=== PATIENT | male | born 1960 | race Caucasian/White ===

== ENCOUNTER 2022-06-06 13:17 | Inpatient (IN) ==
--- NOTE | 2022-06-06 13:36 | ED Triage Note ---
Date of Service June 06, 2022 History of Present Illness This patient was briefly evaluated while in triage. An abbreviated physical exam was performed. This patient is a 61-year-old Male history metastatic breast cancer who presents to the ED for evaluation of hypocalcemia. Was referred to the ED by hematology oncology for calcium infusion and admission. He denies any chest pain, fever, pain, or any other symptoms. Physical Exam CONSTITUTIONAL: in no acute pain or distress, resting comfortably SKIN: pink, warm, dry CARDIAC: regular rate and rhythm RESPIRATORY: in no respiratory distress, lungs clear to auscultation Initial orders for labs and / or imaging were placed and patient was placed in the waiting area until a bed is available. Please see further documentation for the full ED course.
--- NOTE | 2022-06-06 13:37 | History & Physical Report ---
Date of Service June 06, 2022 Assessment & Plan (1) Hypocalcemia: Plan: Hypocalcemia with appropriate secondary elevation in PTH Patient initially denied Xgeva treatment, confirmed with oncology that did receive a single dose May 09 for hypercalcemia of 10.5. Half-life of approximately 25 days, hypocalcemia multifactorial likely with vitamin D deficiency, Xgeva, +/- metastasis deposition PTH 1019; appropriately increased in the setting of severe hypocalcemia ? Bony deposition at skeletal sites versus with severe vitamin D deficiency No seizure, carpopedal spasm, chvostek sign present. Patient does have prolonged QT 11 g per 1 L NSS infusion pending, 50 cc/h. Calcium checks every 2-4 hours .Adjust rate to maintain low-normal ical. Vitamin D repletion Continue oral calcium repletion with calcium carbonate - Hypophosphatemia 1.1 DO NOT replete IV due to risk of precipitation with IV calcium. Cautious repletion p.o. Creatinine baseline around 1.2, admitting creatinine 1.11. 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 This has been d eferred. May have tumor driven calcium deposition at 20 metastasis site contributing to hypocalcemia Hematology oncology following, no acute change in management at this time DVT prophylaxis: Heparin Diet: Regular Disposition: PCU CODE STATUS: Full code. Would not want ventilation/life-sustaining measures continued for more than a few days. 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 Epidural tumor extension with left-sided neural for aminal narrowing at T11-T12 and mild central canal stenosis at T6 noted he [facility] second cycle of treatment. He has T4 cN1 cM1 disease which had completed 1 round of paclitaxel therapy. Ha is seen on arrival to the ER. He reports that he was due to start chemo today. While presenting for cycle 2-day 1 of therapy treating his noted to be hypocalcemic, without correction following 1 g calcium gluconate bolus. Magnesium is normal, PTH is pending, vitamin D is pending. He has not had any constipation, muscle spasms, cramps, numbness/tingling, or paresthesias. He does not think he has received Xgeva or bisphosphonates, did clarify Xgeva 3 weeks ago x1 dose per Dr. Richards. (May 09, 2022 for hypercalcemia of 10.5). He is not having shortness of breath, difficulty breathing, lightheadedness, dizziness, syncope, presyncope. No chest pain. Reports he has had some liquid diarrhea following chemotherapy, without blood or melena. He has not yet had a PET scan as well as undergoing initial treatment first. He has no current or former history of bleeding problems. He takes oxycodone 5 mg 3 times daily for bone pain, otherwise does not take prescription medications. He denies history of MN, lung disease, DM, thyroid problems, parathyroid problems Baseline EKG 05/04/2022: Normal sinus rhythm, QTc 427. No territorial ST segment changes, T wave changes. No ischemic changes. Medical History: Reviewed. Breast cancer as noted.Compression fracture of lumbar vertebrae. T11-T12 for aminal narrowing at site of epidural tumor extension, T6 central canal stenosis. No history of pulmonary or cardiac disease. Medications: Reviewed. PRev Dexamethasone 20 mg daily, 12 hours hours prior to paclitaxel. Surgical History: Reviewed Family history: Reviewed Allergies: Reviewed Social History: Reviewed Code Status: Full Code Allergies Allergy/AdvReac Type Severity Reaction Status Date / Time No Known Allergies Allergy Verified 06/06/22 15:32 Home Medications Medication Instructions Recorded Confirmed Type oxycodone 5 mg tablet 5 mg PO .Q4-6H PRN Pain 05/08/22 06/06/22 History dexamethasone 4 mg tablet 20 mg PO DIRECTED PRN PRIOR TO 06/06/22 06/06/22 History PACLITAXEL loperamide 2 mg capsule 2 mg PO DIRECTED PRN Diarrhea 06/06/22 06/06/22 History ondansetron 8 mg disintegrating 8 mg translingual Q8H PRN 06/06/22 06/06/22 History tablet NAUSEA/VOMITING prochlorperazine maleate 10 mg 10 mg PO Q6H PRN NAUSEA/VOMITING 06/06/22 06/06/22 History tablet Past Med/Surg History Medical History (Updated 06/06/22 @ 19:31 by Doug Simmons MD) Breast cancer in male RIGHT History of COVID-2020 > NOT HOSPITALIZED Kidney stone PRESENT Lower back pain Surgical History (Updated 05/11/22 @ 09:20 by Deandra Esteban, LESLI) Port-A-Cath in place (05/11/22) Insertion of Access Port -with fluoroscopic assistance Gregory Massey MD, FACS [place] teeth extracted Family History (Updated 05/09/22 @ 15:19 by Bela Garcia RN) Father Cancer Social History (Updated 04/18/22 @ 13:46 by POPEYE Fleming) Smoking Status: Never smoker Second Hand Exposure: No; Hx Alcohol Use: No Hx Substance Use: No Preferred Language: Ivorian Communication Ability: Effective Lime Boiler Required: No Beliefs That Will Affect Care: None marital status: Current Living Situation: Spouse current occupational status: retired Other Information That Helps Us Care for You: No Feels Safe at Home: Yes Safety Concerns: Feels Safe At This Time Assistive Devices: Cane Review of Systems Review of Systems: All systems reviewed & are unremarkable except as noted in HPI & below Physical Exam Physical Exam: General: A&Ox3. NAD. Cooperative. Thin. HEENT: Atraumatic, normocephalic. Vision and hearing grossly intact. Chvostek sign negative. Pulm: CTAB A&P. -wheezes, -rales, -rhonchi. Symmetrical chest rise. No increased work of breathing. No respiratory distress. Thorax: Left-sided port in place, no surrounding warmth/erythema. Cardiac: RRR, -mrg. Radial pulses intact and symmetrical. Abdominal: Nontender, nondistended, soft. BS present. Ext: No carpopedal spasm PG Care Time/CCT Total # of Minutes Spent Total Time Spent with Patient: Total time spent is greater than 50% in coordination of care (as documented) at patient's floor/unit and/or counseling patient: Coding Level of Care Code 89806 INT INP/OBS CARE 3/75MIN Diagnoses Hypocalcemia E83.51 Carcinoma of right male breast C50.921 Spine metastasis C79.51
[2022-06-06] MEDS: CALCIUM GLUCONATE 1,000 MG/60 ML BAG IV SCH ×2 (14:09→14:10)
[2022-06-06] MEDS ORDERED: ACETAMINOPHEN 325 MG TAB PO PRN (14:15)
[2022-06-06] MEDS ORDERED: oxyCODONE HCL IR 5 MG TAB (IMMEDIATE RELEASE) PO PRN (14:15)
[2022-06-06] MEDS: CALCIUM GLUCONATE 10% 11,000 MG in DEXTROSE 5% 890 ML IV SCH (14:49)
[2022-06-06] MEDS: MAGNESIUM SULFATE / D5W 1 GM/100 ML BAG IV SCH ×2 (15:13→17:17)
--- NOTE | 2022-06-06 15:13 | Electrocardiogram Report ---
Test Reason : Blood Pressure : / mmHG Vent. Rate : 105 BPM Atrial Rate : 105 BPM P-R Int : 128 ms QRS Dur : 080 ms QT Int : 414 ms P-R-T Axes : 054 -02 017 degrees QTc Int : 547 ms Sinus tachycardia T-wave inversion in Anterior leads , consider ischemia Prolonged QT Abnormal ECG When compared with ECG of 04-MAY-2022 15:49, T wave inversion now evident in Anterior leads QT has lengthened Confirmed by Nicola Boucher ([id number]) on 06/06/2022 3:13:34 PM Referred By: Confirmed By:Nicola Boucher
[2022-06-06] MEDS ORDERED: ERGOCALCIFEROL 50,000 UNITS 1250 MCG CAP PO ONE (15:15)
[2022-06-06 15:33] LABS: Anion Gap 7 (3-11); Calcium 6.6 mg/dl (8.6-10.3); Carbon Dioxide 22 mmol/L (21-32); Chloride 99 mmol/L (98-107); Magnesium 1.7 mg/dl (1.7-2.4); Potassium 4.3 mmol/L (3.5-5.1); Sodium 128 mmol/L (136-145)
[2022-06-06 15:39] LABS: Blood Urea Nitrogen 15 mg/dl (6-23); Est GFR (African American) 78.1 ml/min; Est GFR (Non-African American) 67.4 ml/min; Glucose 195 mg/dl (70-99(Fasting))
[2022-06-06 15:44] LABS: Phosphorus 1.3 mg/dl (2.5-4.9)
[2022-06-06] MEDS ORDERED: MAGNESIUM OXIDE 400 MG TAB PO STA (16:17)
[2022-06-06] MEDS ORDERED: POT PHOSPHATE MONOBASIC W/ SOD TAB PO SCH (17:00)
[2022-06-06] MEDS: POT PHOSPHATE MONOBASIC W/ SOD TAB PO SCH ×2 (17:16→20:49)
[2022-06-06 19:38] LABS: BUN Creatinine Ratio 13.1 (10-20); Calcium 6.9 mg/dl (8.6-10.3); Creatinine Clr Calc Pharmacy 91.9 ml/min; Est GFR (African American) 85.2 ml/min; Est GFR (Non-African American) 73.5 ml/min; Potassium 4.2 mmol/L (3.5-5.1)
[2022-06-06 19:41] LABS: Magnesium 2.2 mg/dl (1.7-2.4); Phosphorus 1.4 mg/dl (2.5-4.9)
[2022-06-06] MEDS: HEPARIN SOD 5,000 UNIT/0.5 ML VIAL SQ SCH (20:50)
[2022-06-06 22:59] LABS: Calcium 7.2 mg/dl (8.6-10.3); Creatinine Clr Calc Pharmacy 98.3 ml/min; Est GFR (African American) 92.4 ml/min; Est GFR (Non-African American) 79.7 ml/min; Magnesium 2.2 mg/dl (1.7-2.4); Phosphorus 2.1 mg/dl (2.5-4.9); Potassium 4.2 mmol/L (3.5-5.1)
[2022-06-07 02:59] LABS: BUN Creatinine Ratio 13.7 (10-20); Calcium 7.1 mg/dl (8.6-10.3); Creatinine Clr Calc Pharmacy 96.4 ml/min; Est GFR (African American) 90.2 ml/min; Est GFR (Non-African American) 77.9 ml/min; Magnesium 2.2 mg/dl (1.7-2.4); Phosphorus 2.8 mg/dl (2.5-4.9); Potassium 4.7 mmol/L (3.5-5.1)
--- NOTE | 2022-06-07 06:16 | Emergency Department Note ---
Impression & Plan Hypocalcemia, Hypomagnesemia, Acute hyponatremia ED Provider Note NAME: CECE NEGRETE AGE: 61 SEX: M : 1960 ARRIVES VIA: Walk-In INFORMANT: Patient ED PROVIDER(S): Connor Kinney DO CHIEF COMPLAINT: Hypocalcemia HPI: Patient is a 61-year-old male with a past medical history of male ductal breast cancer currently undergoing chemotherapy. He presented initially to the outpatient facility for chemo. They obtained blood work and found him to be hypocalcemic and consequently sent him over. He does have multiple metastatic lesions. On his blood work he was found to be hypocalcemic and was given calcium and transferred to the ER. He denies any headache or change in vision. He notes to feeling weak but he has felt this way since the chemo started. Denies any chest pain shortness of breath, nausea, vomiting or diarrhea. No other exacerbating or remitting factors. PAST MEDICAL HISTORY:See Below PAST SURGICAL HISTORY:See Below FAMILY HISTORY:See Below SOCIAL HISTORY:See Below HOME MEDICATIONS:See Below ALLERGIES:See Below VITALS:See Below PHYSICAL EXAMINATION: GENERAL: Sitting up in chair, alert, chronically ill-appearing, disheveled EYE EXAM: normal conjunctiva. OROPHARYNX:mucous membranes are dry NECK: supple, no nuchal rigidity, no adenopathy, non-tender CHEST: Port is already accessed over the left chest LUNGS: Clear to auscultation. Normal chest wall mechanics HEART: no murmurs, S1 normal and S2 normal ABDOMEN: abdomen soft, non-tender, normo-active bowel sounds, no masses, no rebound or guarding. UPPER EXTREMITIES: upper extremities are grossly normal. LOWER EXTREMITIES: No pitting edema. NEURO EXAM: Normal sensorium, cranial nerves II-XII grossly intact, normal speech, no gross weakness of arms, no gross weakness of legs. MEDICAL DECISION MAKING: Patient is a 61-year-old male with with breast cancer currently undergoing chemo who presents to the ER for hypocalcemia. IV was established blood work was obtained. CBC showed no significant leukocytosis or anemia. BMP was fairly unremarkable with exception of a hypocalcemia at 5.8. Mag was low at 1.6. Ionized calcium was 0.7. These were not repeated as they were just obtained. EKG was obtained as discussed below. He was given 2 g of calcium gluconate while in the ER and placed on a drip. Discussed with the hospitalist Dr. Ahn who evaluated the patient as well. Discussed with his son who was present at bedside and they are both agreeable for admission. Patient was admitted to the hospitalist for further work-up management and treatment. Did discuss with care managers as well in regards to admission. Triage Nursing notes reviewed. Limited review of prior medical records performed Vital Signs: reviewed and remarkable for HTN Differential diagnosis: Infection, dehydration, metabolic abnormality, hypo/hyperglycemia, electrolyte disturbance, anemia, hypoxia, cardiac sources, intracerebral event, toxicologic, neurologic, as well as other pathologies. ER treatment provided: See below Diagnostics interpreted by me include EKG and cardiac monitoring as listed below: -Cardiac Monitoring: An order was placed for continuous cardiac monitoring. The monitor shows a rate of 101 with sinus rhythm. -ECG: Sinus rhythm rate of 105 Normal axis QTc [address] ST depressions in V2 and V3 T wave inversions in the septal and anterior leads -Laboratory studies:Interpreted by me as stated above in MDM and shown below. Imaging studies: Xrays: As interpreted by me:none CTs show: none Consultation(s): As described in MDM Procedures:none Critical Care: None Past Med/Surg History Medical History (Updated 06/07/22 @ 06:24 by Connor Kinney DO) Breast cancer in male RIGHT History of COVID-19 2020 > NOT HOSPITALIZED Kidney stone PRESENT Lower back pain Surgical History (Updated 05/11/22 @ 09:20 by Deandra Esteban, LESLI) Port-A-Cath in place (05/11/22) Insertion of Access Port -with fluoroscopic assistance Gregory Massey MD, FACS [place] teeth extracted Family History (Updated 05/09/22 @ 15:19 by Bela Garcia RN) Father Cancer Social History (Updated 04/18/22 @ 13:46 by POPEYE Fleming) Smoking Status: Never smoker Second Hand Exposure: No; Hx Alcohol Use: No Hx Substance Use: No Preferred Language: Luxembourgish Communication Ability: Effective Assembler Movement Required: No Beliefs That Will Affect Care: None marital status: Current Living Situation: Spouse current occupational status: retired Other Information That Helps Us Care for You: No Feels Safe at Home: Yes Safety Concerns: Feels Safe At This Time Assistive Devices: Cane Allergies Allergies Allergy/AdvReac Type Severity Reaction Status Date / Time No Known Allergies Allergy Verified 06/06/22 15:32 Home Meds Home Medications Medication Instructions Recorded Confirmed oxycodone 5 mg tablet 5 mg PO .Q4-6H PRN Pain 05/08/22 06/06/22 dexamethasone 4 mg tablet 20 mg PO DIRECTED PRN PRIOR TO 06/06/22 06/06/22 PACLITAXEL loperamide 2 mg capsule 2 mg PO DIRECTED PRN Diarrhea 06/06/22 06/06/22 ondansetron 8 mg disintegrating 8 mg translingual Q8H PRN 06/06/22 06/06/22 tablet NAUSEA/VOMITING prochlorperazine maleate 10 mg 10 mg PO Q6H PRN NAUSEA/VOMITING 06/06/22 06/06/22 tablet Results & Data (ED) Vital Signs Vital Signs - 24 hr 06/06/22 13:30 Temperature 36.8 C Temperature Source Temporal Artery Scan Pulse Rate 91 H Respiratory Rate 18 Blood Pressure 109/79 Blood Pressure Mean 89 Pulse Oximetry 95 Oxygen Delivery Method Room Air Sepsis Recent Fever Within 48 Hours No Sepsis New/Unexplained Change in Mental Status No Sepsis Action Taken by Nursing No Action Required Laboratory Data 06/07/22 02:21 Lab Results 06/06/22 Range/Units 13:49 SARS-CoV-2, RNA, NAAT NEGATIVE (NEGATIVE) Administered Medications Heparin Sodium (Porcine) (Heparin Sod 5,000 Unit/0.5 Ml Vial) 5,000 units SQ Q8 [facility] Stop: 07/06/22 21:59 Last Admin: 06/06/22 20:50 Dose: 5,000 units Documented By: TP Calcium Gluconate 11,000 mg/ (Dextrose) 1,000 mls @ 50 mls/hr IV .Q20H [facility] Stop: 07/06/22 14:29 Last Admin: 06/06/22 14:49 Dose: 50 mls/hr Documented By: BK Discontinued Medications Ergocalciferol (Ergocalciferol 50,000 Units 1250 Mcg Cap) 50,000 units PO ONE ONE Stop: 06/06/22 15:16 Last Admin: 06/06/22 16:38 Dose: 50,000 units Documented By: OL Calcium Gluconate () 1,000 mg in 60 mls @ 240 mls/hr IV Q15M [facility] Stop: 06/06/22 14:14 Last Infusion: 06/06/22 15:18 Dose: 0 mls/hr Documented By: Admin: 06/06/22 14:10 Dose: 240 mls/hr Documented By: Infusion: 06/06/22 14:10 Dose: 240 mls/hr Documented By: Admin: 06/06/22 14:09 Dose: 240 mls/hr Documented By: OSVALDO Magnesium Sulfate/Dextrose (Magnesium Sulfate / D5w) 1 gm in 100 mls @ 50 mls/hr IV Q2H [facility] Stop: 06/06/22 18:59 Last Infusion: 06/06/22 19:17 Dose: 0 mls/hr Documented By: Admin: 06/06/22 17:17 Dose: 50 mls/hr Documented By: Infusion: 06/06/22 17:13 Dose: 50 mls/hr Documented By: Admin: 06/06/22 15:13 Dose: 50 mls/hr Documented By: LIANET Magnesium Oxide (Magnesium Oxide 400 Mg Tab) 400 mg PO NOW STA Stop: 06/06/22 16:18 Last Admin: 06/06/22 16:38 Dose: 400 mg Documented By: MATILDA Potassium Phosphate (Pot Phosphate Monobasic W/ Sod Tab) 2 tab PO QID [facility] Stop: 07/06/22 16:59 Last Admin: 06/06/22 20:49 Dose: 2 tab Documented By: Admin: 06/06/22 17:16 Dose: 2 tab Documented By: AM Discharge Plan Visit Data Chief Complaint: Abnormal Labs/Diagnostic Testing Stated Complaint: HYPOGLYCIMIA ED Provider: Connor Kinney Discharge Problem: Hypocalcemia, Hypomagnesemia, Acute hyponatremia Patient Disposition: Admitted As Inpatient Discharge Instructions Interventions: ED Discharge Assessment Last Done: 06/06/22 17:01
[2022-06-07] MEDS: HEPARIN SOD 5,000 UNIT/0.5 ML VIAL SQ SCH ×2 (06:26→14:50)
[2022-06-07 06:58] LABS: Calcium 7.5 mg/dl (8.6-10.3); Creatinine Clr Calc Pharmacy 98.3 ml/min; Est GFR (African American) 92.4 ml/min; Est GFR (Non-African American) 79.7 ml/min; Magnesium 2.2 mg/dl (1.7-2.4); Potassium 4.5 mmol/L (3.5-5.1)
--- NOTE | 2022-06-07 08:15 | Hospitalist Progress Note ---
Date of Service June 07, 2022 Assessment & Plan (1) Hypocalcemia: Plan: Hypocalcemia with appropriate secondary elevation in PTH Patient initially denied Xgeva treatment, confirmed with oncology that did receive a single dose May 09 for hypercalcemia of 10.5. Half-life of approximately 25 days, hypocalcemia multifactorial likely with vitamin D deficiency, Xgeva, +/- metastasi PTH 1019; appropriately increased in the setting of severe hypocalcemia ? Bony deposition at skeletal sites versus with severe vitamin D deficiency No seizure, carpopedal spasm, Chvostek sign present, prolonged QT noted, continue telemetry 11 g per 1 L NSS infusion pending, 50 cc/h. Calcium checks every 2-4 hours. Adjust rate to maintain low-normal ical. Vitamin D repletion Continue oral calcium repletion with calcium carbonate - Hypophosphatemia 1.1 DO NOT replete IV due to risk of precipitation with IV calcium. Cautious repletion p.o. Creatinine baseline around 1.2, admitting creatinine 1.11. No DEMARCUS Oral calcium carbonate ordered Disposition: PCU CODE STATUS: Full code. Would not want ventilation/life-sustaining measures continued for more than a few days. (2) Carcinoma of right male breast: Plan: History of metastatic intraductal carcinoma of the right breast with spinal and diffuse bony metastasis Undergoing chemotherapy at [facility], has completed 1 cycle and was to begin his fi rst day of second cycle, paclitaxel/carboplatin 4/4. This has been deferred. Hematology oncology following, no acute change in management at this time (3) Spine metastasis: Plan: QT prolongation In the setting of hypocalcemia, hypomagnesemia Clinically without chest pain or chest pressure Replete electrolytes as above, continuous telemetry Breast cancer with metastasis DVT prophylaxis: Heparin Diet: Regular Admission and Anticipated Discharge Date Admission Date: June 06, 2022 Subjective Patient without any acute events overnight. Feeling more well and anxious to go home. Denies chest pain or trouble breathing, abdominal pain. Review of Systems Review of Systems: All systems reviewed & are unremarkable except as noted in Subjective Physical Exam Constitutional: WD/WN, vitals as above Respiratory: normal respiratory effort, lungs clear to auscultation Cardiovascular: RRR, no murmur, no edema Gastrointestinal (Abdomen): normal bowel sounds, soft, nontender, no hepatosplenomegaly Skin: no rashes, warm and dry Psychiatric: Alert and oriented, tearful Results & Data Results & Data Vital Signs (Past 12 Hours) Vital Signs Temp Pulse Resp BP Pulse Ox O2 Del Method 06/07/22 07:04 36.3 C L 84 20 119/84 96 Room Air 06/07/22 00:00 36.4 C L 72 18 124/80 94 Room Air PG Care Time/CCT Total # of Minutes Spent Total Time Spent with Patient: Total time spent is greater than 50% in coordination of care (as documented) at patient's floor/unit and/or counseling patient: Coding Diagnoses Hypocalcemia E83.51 Carcinoma of right male breast C50.921 Spine metastasis C79.51
[2022-06-07] MEDS ORDERED: MAGNESIUM OXIDE 400 MG TAB PO SCH (09:00)
[2022-06-07] MEDS: CALCIUM GLUCONATE 10% 11,000 MG in DEXTROSE 5% 890 ML IV SCH (10:22)
[2022-06-07 11:36] LABS: Calcium 8.1 mg/dl (8.6-10.3); Creatinine Clr Calc Pharmacy 98.3 ml/min; Est GFR (African American) 92.4 ml/min; Est GFR (Non-African American) 79.7 ml/min; Magnesium 2.1 mg/dl (1.7-2.4); Potassium 4.5 mmol/L (3.5-5.1)
--- NOTE | 2022-06-07 12:03 | Nephrology Consultation ---
Date of Consultation June 07, 2022 Assessment & Plan (1) Hypocalcemia: Attributed to Denosumab and 25OH D deficiency. sPTH noted. Tolerating IV calcium replacement well. Serum calcium improving. Provide ergocalciferol 68058 units weekly. Once serum calcium normalizes, stop calcium gluconate gtt. I would sug gest then starting calcium carbonate 1250 mg twice daily with close outpatient labs. Xgeva held. (2) Carcinoma of right male breast: Oncology follow up to be rescheduled post discharge. Xgeva held. (3) Hypomagnesemia: IV replacement provided. Continue vitamin D supplement. Follow up with outpatient labs. History of Present Illness Reason for Consultation: Hypocalcemia Requesting Physician: Diandra Johnson DO Attending Physician: Diandra Johnson DO History of Present Illness Mr. Ha Taylor is a 61-year-old male with ductal breast carcinoma with skeletal metastasis. He was referred to the ER at [facility] yesterday from the oncology clinic for evaluation of hypocalcemia. Ha denies any associated symptoms. Overall, he feels well. He was admitted with notable hypocalcemia and associated QTc prolongation and has been receiving IV calcium gluconate overnight. Ha is tolerating therapy well and he hopes to be discharged home today. The patient was seen and evaluated with his son at the bedside. Initial cancer diagnosis was made in May 2022 with primary right breast and extensive skeletal mets. Epidural tumor extension with left-sided neural foraminal narrowing at T11-T12 and mild central canal stenosis at T6 noted. He completed 1 round of paclitaxel therapy. Xgeva given on May 09 for hypercalcemia. He has not had any constipation, muscle spasms, cramps, numbness/tingling, or paresthesias. He is not having shortness of breath, difficulty breathing, lightheadedness, dizziness, syncope, presyncope. No chest pain. Ha takes oxycodone 5 mg 3 times daily for bone pain. Allergies Allergy/AdvReac Type Severity Reaction Status Date / Time No Known Allergies Allergy Verified 06/06/22 15:32 Home Medications Medication Instructions Recorded Confirmed Type oxycodone 5 mg tablet 5 mg PO .Q4-6H PRN Pain 05/08/22 06/06/22 History dexamethasone 4 mg tablet 20 mg PO DIRECTED PRN PRIOR TO 06/06/22 06/06/22 History PACLITAXEL loperamide 2 mg capsule 2 mg PO DIRECTED PRN Diarrhea 06/06/22 06/06/22 History ondansetron 8 mg disintegrating 8 mg translingual Q8H PRN 06/06/22 06/06/22 History tablet NAUSEA/VOMITING prochlorperazine maleate 10 mg 10 mg PO Q6H PRN NAUSEA/VOMITING 06/06/22 06/06/22 History tablet Patient History Medical History Breast cancer in male RIGHT History of COVID-19 2020 > NOT HOSPITALIZED Kidney stone PRESENT Lower back pain Surgical History Port-A-Cath in place (05/11/22) Insertion of Access Port -with fluoroscopic assistance Gregory Massey MD, FACS [place] teeth extracted Family History Father Cancer Social History Smoking Status: Never smoker Second Hand Exposure: No; Hx Alcohol Use: No Hx Substance Use: No Preferred Language: Tanzanian Communication Ability: Effective [place] Waitress/Waiter Required: No Beliefs That Will Affect Care: None marital status: Current Living Situation: Spouse current occupational status: retired Other Information That Helps Us Care for You: No Feels Safe at Home: Yes Safety Concerns: Feels Safe At This Time Assistive Devices: Cane Review of Systems Review of Systems: All systems reviewed & are unremarkable except as noted in HPI & below Physical Exam Constitutional: well developed; no acute distress Eyes: no scleral abnormality and no corneal abnormality Neck: normal visual inspection and trachea midline Respiratory: normal respiratory effort Auscultation: lungs clear to auscultation bilaterally Cardiovascular: Rate/Rhythm: regular rate Heart Sounds: normal S1 and normal S2 Extremities: no edema Musculoskeletal: Extremities: no cyanosis and no clubbing Skin: normal turgor; no lesions Neurologic: Motor/Sensory: no tremor and no asterixis Psychiatric: Orientation: alert and oriented x 3 Results & Data Vital Signs (Past 12 Hours) Vital Signs Temp Pulse Resp BP Pulse Ox O2 Del Method 06/07/22 11:50 36.6 C 65 18 129/84 97 Room Air 06/07/22 07:04 36.3 C L 84 20 119/84 96 Room Air Laboratory Results Laboratory Results - last 24 hr 06/06/22 06/06/22 06/06/22 13:49 14:38 14:38 Sodium 128 L Potassium 4.3 Chloride 99 Carbon Dioxide 22 Anion Gap 7 BUN 15 Creatinine 1.15 Est Cr Clr Drug Dosing Not Reportable Est GFR ( Amer) 78.1 Est GFR (Non-Af Amer) 67.4 BUN/Creatinine Ratio 13.0 Glucose 195 H Calcium 6.6 L Ionized Calcium 0.82 L Phosphorus 1.3 L* Magnesium 1.7 SARS-CoV-2, RNA, NAAT NEGATIVE 06/06/22 06/06/22 06/06/22 18:45 18:45 22:32 Sodium 128 L 127 L Potassium 4.2 4.2 Chloride 98 97 L Carbon Dioxide 21 23 Anion Gap 9 7 BUN 14 15 Creatinine 1.07 1.00 Est Cr Clr Drug Dosing 91.9 98.3 Est GFR ( Amer) 85.2 92.4 Est GFR (Non-Af Amer) 73.5 79.7 BUN/Creatinine Ratio 13.1 15.0 Glucose 218 H 183 H Calcium 6.9 L 7.2 L Ionized Calcium 0.87 L Phosphorus 1.4 L* 2.1 L Magnesium 2.2 2.2 SARS-CoV-2, RNA, NAAT 06/06/22 06/07/22 06/07/22 22:32 02:17 02:21 Sodium 131 L Potassium 4.7 Chloride 100 Carbon Dioxide 24 Anion Gap 7 BUN 14 Creatinine 1.02 Est Cr Clr Drug Dosing 96.4 Est GFR ( Amer) 90.2 Est GFR (Non-Af Amer) 77.9 BUN/Creatinine Ratio 13.7 Glucose 170 H Calcium 7.1 L Ionized Calcium 0.93 L 0.94 L Phosphorus 2.8 Magnesium 2.2 SARS-CoV-2, RNA, NAAT 06/07/22 06/07/22 06:17 10:35 Sodium 131 L 132 L Potassium 4.5 4.5 Chloride 100 99 Carbon Dioxide 25 25 Anion Gap 6 8 BUN 14 15 Creatinine 1.00 1.00 Est Cr Clr Drug Dosing 98.3 98.3 Est GFR ( Amer) 92.4 92.4 Est GFR (Non-Af Amer) 79.7 79.7 BUN/Creatinine Ratio 14.0 15.0 Glucose 163 H 143 H Calcium 7.5 L 8.1 L Ionized Calcium Phosphorus Magnesium 2.2 2.1 SARS-CoV-2, RNA, NAAT PG Care Time/CCT Total # of Minutes Spent Total Time Spent with Patient: Total time spent is greater than 50% in coordination of care (as documented) at patient's floor/unit and/or counseling patient: Coding Level of Care Code 93330 IN/OBS CONSULT LVL 4,60M Diagnoses Hypocalcemia E83.51 Carcinoma of right male breast C50.921 Hypomagnesemia E83.42
[2022-06-07 15:25] LABS: Albumin Level 3.1 gm/dl (3.4-5.0); BUN Creatinine Ratio 15.4 (10-20); Calcium 8.4 mg/dl (8.6-10.3); Creatinine Clr Calc Pharmacy 94.5 ml/min; Est GFR (African American) 88.1 ml/min; Est GFR (Non-African American) 76.1 ml/min; Phosphorus 2.2 mg/dl (2.5-4.9); Potassium 4.2 mmol/L (3.5-5.1)
[2022-06-07] MEDS ORDERED: CALCIUM CARBONATE 1,250 MG/5 ML UDC PO SCH (16:25)
--- NOTE | 2022-06-07 16:37 | Discharge Summary ---
Discharge Summary Date of Service June 07, 2022 Admission HPI Per Admitting Provider Ha is a 61-year-old male with a past medical history of male breast ductal carcinoma with skeletal metastasis; primary right breast suspected with extensive skeletal mets and nondisplaced rib fractures noted on initial assessment 05/19/2022. Epidural tumor extension with left-sided neural for aminal narrowing at T11-T12 and mild central canal stenosis at T6 noted he was seen 06/06/2022 in the [facility] to start his second cycle of treatment. He has T4 cN1 cM1 disease which had completed 1 round of paclitaxel therapy. Ha is seen on arrival to the ER. He reports that he was due to start chemo today. While presenting for cycle 2-day 1 of therapy treating his noted to be hypocalcemic, without correction following 1 g calcium gluconate bolus. Magnesium is normal, PTH is pending, vitamin D is pending. He has not had any constipation, muscle spasms, cramps, numbness/tingling, or paresthesias. He does not think he has received Xgeva or bisphosphonates, did clarify Xgeva 3 weeks ago x1 dose per Dr. Richards. (May 09, 2022 for hypercalcemia of 10.5). He is not having shortness of breath, difficulty breathing, lightheadedness, dizziness, syncope, presyncope. No chest pain. Reports he has had some liquid diarrhea following chemotherapy, without blood or melena. He has not yet had a PET scan as well as undergoing initial treatment first. He has no current or former history of bleeding problems. He takes oxycodone 5 mg 3 times daily for bone pain, otherwise does not take prescription medications. He denies history of PA, lung disease, DM, thyroid problems, parathyroid problems Baseline EKG 05/04/2022: Normal sinus rhythm, QTc 427. No territorial ST segment changes, T wave changes. No ischemic changes. Medical History: Reviewed. Breast cancer as noted.Compression fracture of lumbar vertebrae. T11-T12 for aminal narrowing at site of epidural tumor extension, T6 central canal stenosis. No history of pulmonary or cardiac disease. Medications: Reviewed. PRev Dexamethasone 20 mg daily, 12 hours hours prior to paclitaxel. Surgical History: Reviewed Family history: Reviewed Allergies: Reviewed Social History: Reviewed Code Status: Full Code Admission Exam Per Admitting Provider General: A&Ox3. NAD. Cooperative. Thin. HEENT: Atraumatic, normocephalic. Vision and hearing grossly intact. Chvostek sign negative. Pulm: CTAB A&P. -wheezes, -rales, -rhonchi. Symmetrical chest rise. No increased work of breathing. No respiratory distress. Thorax: Left-sided port in place, no surrounding warmth/erythema. Cardiac: RRR, -mrg. Radial pulses intact and symmetrical. Abdominal: Nontender, nondistended, soft. BS present. Ext: No carpopedal spasm Principal Dx & Hospital Course #1 = Principal Diagnosis (1) Hypocalcemia: Patient initially denied Xgeva treatment, confirmed with oncology that did receive a single dose May 09 for hypercalcemia of 10.5. Half-life of approximately 25 days, hypocalcemia multifactorial likely with vitamin D deficiency, Xgeva, +/- metastasis PTH 1019; appropriately increased in the setting of severe hypocalcemia ? Bony deposition at skeletal sites versus with severe vitamin D deficiency No seizure, carpopedal spasm, Chvostek sign present, prolonged QT noted, continue telemetry Improved with calcium gluconate infusion, ICal and corrected shaun at 3pm normal, transition to calcium carbonate 1250mg BID on discharge Vitamin D repletion with weekly D2 50,000IU, dose received 06/06 and prescription sent Hypophosphatemia repleted IV; improved appropriately Creatinine baseline around 1.2, admitting creatinine 1.11. No DEMARCUS Recheck BMP/iCal/magnesium/phosphorus on 06/09 with close follow-up with Dr. 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 This has been deferred. Hematology oncology following, no acute change in management at this time (6) Spine metastasis: See above Plan Disposition: Patient really desires to go home today, given that his calcium and magnesium levels are normal, phosphorus level is improved, feel that he is safe for discharge home with close follow-up with lab work and with his oncologist/PCP. Given return precautions and prescription sent to local pharmacy. No cardiac arrhythmia on telemetry. Discharge Exam Constitutional WD/WN, vitals as above Respiratory normal respiratory effort, lungs clear to auscultation Cardiovascular RRR, no murmur, no edema Psychiatric Alert and oriented, tearful affect Updated Medication List Medication Instructions Recorded Confirmed Type oxycodone 5 mg tablet 5 mg PO .Q4-6H PRN Pain 05/08/22 06/06/22 History dexamethasone 4 mg tablet 20 mg PO DIRECTED PRN PRIOR TO 06/06/22 06/06/22 History PACLITAXEL loperamide 2 mg capsule 2 mg PO DIRECTED PRN Diarrhea 06/06/22 06/06/22 History ondansetron 8 mg disintegrating 8 mg translingual Q8H PRN 06/06/22 06/06/22 History tablet NAUSEA/VOMITING prochlorperazine maleate 10 mg 10 mg PO Q6H PRN NAUSEA/VOMITING 06/06/22 06/06/22 History tablet calcium carbonate 500 mg calcium 500 mg PO BID 30 days #60 tabs 06/07/22 Rx (1,250 mg) tablet ergocalciferol (vitamin D2) 1,250 50,000 unit PO .weekly #4 caps 06/07/22 Rx mcg (50,000 unit) capsule magnesium oxide 400 mg (241.3 mg 400 mg PO QAM 30 days #30 tabs 06/07/22 Rx magnesium) tablet Hospital Stay Data Consultations 06/06/22 13:43 ED Decision to Admit Stat 06/07/22 08:14 Consult Nephrology Routine Pending Results Patient Have Any Pending Studies at Discharge: No Discharge Instructions Given to Patient (Per Discharging Provider) You were admitted for low calcium. This is in some part due to low vitamin D and Xgeva, but also likely in part due to your cancer. You were given IV calcium medication which improved to a more normal level. Your corrected calcium level was 9.1 at 2pm on day of discharge. The kidney doctors recommended you start taking weekly vitamin D, as well as twice daily calcium supplement, which I sent to the [facility] in [place]. The vitamin D starts next Sunday. I also sent in magnesium supplement which is daily. If you have issues with picking up your medications call the hospital. Some of these medications are available over the counter; the pharmacist can help you find them if they are cheaper that way. You should have labwork to check your magnesium, phorphorus, and calcium levels on Sunday, and follow this up closely with Dr. Richards and your family doc. If you have concerns or worsening symptoms, please call your family doc. If urgent concern for your health or safety, please come back for hospital evaluation. Total Time Total Time Spent Total Time Spent (In Minutes): 40 minutes Coding Level of Care Code 55247 INP/OBS DISCH >30 MIN Diagnoses Hypocalcemia E83.51 Acute hyponatremia E87.1 Hypomagnesemia E83.42 Low phosphate levels E83.39 Carcinoma of right male breast C50.921 Spine metastasis C79.51
--- NOTE | 2022-06-08 08:38 | Electrocardiogram Report ---
Test Reason : Blood Pressure : / mmHG Vent. Rate : 090 BPM Atrial Rate : 090 BPM P-R Int : 150 ms QRS Dur : 088 ms QT Int : 356 ms P-R-T Axes : 063 044 012 degrees QTc Int : 435 ms Normal sinus rhythm Left atrial enlargement Incomplete right bundle branch block T wave abnormality, consider anterior ischemia Abnormal ECG When compared with ECG of 06-JUN-2022 13:46, QT has shortened Confirmed by Nicola Boucher ([id number]) on 06/08/2022 8:38:32 AM Referred By: REFERRED SELF Confirmed By:Nicola Boucher
== END 2022-06-07 18:02 | disposition home or self-care (01) | DRG 641 ==
LOC: ED 13:17 → EDINP 14:18 → SUATTDRO 14:18 → EDINP 17:01 → 4W 18:39